=== PATIENT | female | born 1995 ===

== ENCOUNTER 2018-09-29 14:28 | Emergency (ER) | payer OTHER ==
[~2018-09-29] VITALS: Ht 160 cm; Wt 54.4 kg
[2018-09-29] MEDS ORDERED: Triamcinolone A15 G3 TOP (14:56)
[2018-09-29] MEDS ORDERED: BENADRYL25 MG PO (14:56)
== END 2018-09-29 15:04 | disposition home or self-care (01) ==
LOC: ER 14:28
DX: L25.9 Unspecified contact dermatitis, unspecified cause (principal)
CPT/HCPCS: 99282